=== PATIENT | male | born 2005 | race Caucasian/White ===

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

== ENCOUNTER 2025-03-22 17:22 | Emergency (ER) | payer OTHER ==
[~2025-03-22] VITALS: Ht 180.3 cm; Wt 65.0 kg
[2025-03-22 18:49] LABS: BLOOD/HGB, URINE NEGATIVE (Negative); KETONE, URINE NEGATIVE (Negative); LEUK ESTERASE, URINE NEGATIVE (negative); NITRITE, URINE NEGATIVE (negative)
[2025-03-22 19:16] VITALS: BP 126/65
== END 2025-03-22 19:16 | disposition home or self-care (01) ==
LOC: ED 17:22
PROVIDERS: Emergency Medicine
DX: M54.50 Low back pain, unspecified (principal); R39.15 Urgency of urination
CPT/HCPCS: 72100; 81003; 99283